=== PATIENT | male | born 1960 | race African-American/Black ===

== ENCOUNTER 2019-05-11 16:10 | Inpatient (IN) ==
[2019-05-11] MEDS: DEXTROSE 5% NACL 0.45% 1,000 ML IV SCH (18:48)
[2019-05-11] MEDS ORDERED: ONDANSETRON 4 MG/2 ML VIAL IV PRN (19:53)
[2019-05-11] MEDS ORDERED: MORPHINE 4 MG/1 ML VIAL IV PRN (19:53)
[2019-05-11] MEDS ORDERED: ACETAMINOPHEN 325 MG TABLET PO PRN (19:53)
[2019-05-11] MEDS: FAMOTIDINE 20 MG/2 ML VIAL IV SCH (20:23)
[2019-05-11] MEDS: ENOXAPARIN 40 MG/0.4 ML SYRINGE SUBCUT SCH (20:43)
[2019-05-11 21:18] LABS: Basophils % 0.3 % (0.0-0.8); Eosinophils # 0.1 10*3/uL (0.0-0.87); Eosinophils % 0.9 % (0.00-10.9); Hematocrit 41.8 VOL% (42.0-52.0); Hemoglobin 14.1 GM/DL (14.0-18.0); Immature Granulocytes Absolute 0.11 #; Lymphocytes # 2.4 10*3/uL (1.4-4.0); Mean Corpuscular HGB Conc 33.7 GM/DL (32-36); Mean Corpuscular Volume 99.1 FL (87-102); Mean Platelet Volume 10.1 FL (9.6-12.0); Monocytes % 9.5 % (1.7-12.7); Neutrophils % 67.3 % (38.7-73.9); Platelet Count 234 T/CUMM (130-400); Red Blood Count 4.22 MC/CUMM (3.8-5.5); Red Cell Distribution Width 14.4 % (9.3-17.3); White Blood Count 11.5 T/CUMM (4-12)
[2019-05-11] MEDS ORDERED: LORazepam 2 MG/1 ML VIAL IV PRN ×2 (22:13)
[2019-05-11] MEDS: HYDROmorphone 2 MG/1 ML VIAL IV PRN (22:30)
[2019-05-11] MEDS: niCARdipine INJ 25 MG in SODIUM CHLORIDE 0.9% 240 ML IV PRN (22:30)
[2019-05-11 22:38] LABS: Albumin 3.4 G/DL (3.4-5.0); Bilirubin,Total 0.7 MG/DL (0.2-1.0); Calcium 8.9 MG/DL (8.5-10.1); Osmolality,Calculated 271.8 MOS/KG (273-304); Total Protein 7.1 G/DL (6.4-8.3)
[2019-05-12] MEDS: niCARdipine INJ 25 MG in SODIUM CHLORIDE 0.9% 240 ML IV PRN ×5 (01:44→22:14)
[2019-05-12] MEDS: DEXTROSE 5% NACL 0.45% 1,000 ML IV SCH ×4 (02:52→18:00)
[2019-05-12] MEDS: HYDROmorphone 2 MG/1 ML VIAL IV PRN ×4 (04:55→20:09)
[2019-05-12 05:36] LABS: Risk Ratio 5.88; Thyroid Stimulating Hormone 1.1 uIU/ml (0.358-3.74)
[2019-05-12] MEDS ORDERED: METOPROLOL TARTRATE 5 MG/5 ML VIAL IV ONE ×2 (07:49→07:50)
[2019-05-12] MEDS ORDERED: ASPIRIN CHEW 81 MG TABLET PO ONE (07:49)
[2019-05-12] MEDS ORDERED: ENOXAPARIN 100 MG/ML SYRINGE SUBCUT ONE (07:50)
[2019-05-12] MEDS ORDERED: MAGNESIUM SULF RIDER 4 GM in PREMIX 1 EACH IV ONE (09:00)
[2019-05-12] MEDS ORDERED: METOPROLOL TARTRATE 25 MG TABLET PO SCH (09:00)
[2019-05-12] MEDS ORDERED: POTASSIUM CHLORIDE INJ 60 MEQ in SODIUM CHLORIDE 0.9% 500 ML IV ONE (09:30)
[2019-05-12] MEDS: FAMOTIDINE 20 MG/2 ML VIAL IV SCH ×2 (09:31→20:08)
[2019-05-12] MEDS ORDERED: amLODIPine 10 MG TABLET PO ONE (10:26)
[2019-05-12] MEDS ORDERED: NITROGLYCERIN SL 0.4 MG TABLET SL PRN (10:43)
[2019-05-12 11:13] LABS: Basophils # 0.1 10*3/uL (0.0-0.2); Basophils % 0.5 % (0.0-0.8); Eosinophils # 0.1 10*3/uL (0.0-0.87); Eosinophils % 0.7 % (0.00-10.9); Hematocrit 43.4 VOL% (42.0-52.0); Hemoglobin 14.9 GM/DL (14.0-18.0); Immature Granulocytes % 1.1 %; Immature Granulocytes Absolute 0.12 #; Lymphocytes # 2.4 10*3/uL (1.4-4.0); Lymphocytes % 22.1 % (21.2-54.2); Mean Corpuscular HGB Conc 34.3 GM/DL (32-36); Mean Corpuscular Volume 97.5 FL (87-102); Mean Platelet Volume 10.9 FL (9.6-12.0); Monocytes % 10.1 % (1.7-12.7); Neutrophils % 65.5 % (38.7-73.9); Platelet Count 255 T/CUMM (130-400); Red Blood Count 4.45 MC/CUMM (3.8-5.5); Red Cell Distribution Width 13.8 % (9.3-17.3); White Blood Count 10.8 T/CUMM (4-12)
[2019-05-12 11:29] LABS: Blood Urea Nitrogen 6 MG/DL (7-18); Calcium 8.7 MG/DL (8.5-10.1); Glucose 120 MG/DL (74-106); Osmolality,Calculated 268.1 MOS/KG (273-304)
[2019-05-12 11:31] LABS: Troponin I 0.322 NG/ML (0.00-0.045)
[2019-05-12 11:46] LABS: Troponin I 0.308 NG/ML (0.00-0.045)
[2019-05-12 12:07] VITALS: BP 165/85
[2019-05-12 14:08] LABS: Troponin I 0.316 NG/ML (0.00-0.045)
[2019-05-12 16:39] LABS: Troponin I 0.309 NG/ML (0.00-0.045)
[2019-05-12] MEDS ORDERED: OLMESARTAN 20 MG TABLET PO SCH (20:00)
[2019-05-12] MEDS: ENOXAPARIN 40 MG/0.4 ML SYRINGE SUBCUT SCH (20:08)
[2019-05-12] MEDS ORDERED: CARVEDILOL 3.125 MG TABLET PO SCH (21:00)
[2019-05-12] MEDS ORDERED: CARVEDILOL 12.5 MG TABLET PO SCH (21:00)
[2019-05-13] MEDS: DEXTROSE 5% NACL 0.45% 1,000 ML IV SCH ×2 (01:47→02:23)
[2019-05-13] MEDS: HYDROmorphone 2 MG/1 ML VIAL IV PRN (04:31)
[2019-05-13] MEDS ORDERED: ASPIRIN CHEW 81 MG TABLET PO SCH (09:00)
[2019-05-15 10:06] LABS: Metanephrine, Free 0.31 nmol/L (<0.50); Normetanephrine, Free 0.69 nmol/L (<0.90)
[2019-05-16 09:02] LABS: Dopamine, Plasma 89 pg/mL; Epinephrine, Plasma 230 pg/mL; Norepinephrine, Plasma 870 pg/mL
[2019-05-16 12:41] LABS: Renin Activity 1.9 ng/mL/h
== END 2019-05-13 06:25 | disposition left against medical advice (07) | DRG 304 ==
LOC: SUATTDRO 18:47 → N.CC 18:47 → N.ICU 05-12 17:32
PROVIDERS: ADMIT Internal Medicine; ATTEND Internal Medicine

== ENCOUNTER 2021-05-26 03:20 | Inpatient (IN) ==
[2021-05-26 09:17] LABS: Basophils % 0.4 % (0.0-0.8); Eosinophils % 0.1 % (0.00-10.9); Hematocrit 37.9 VOL% (42.0-52.0); Immature Granulocytes % 0.4 %; Immature Granulocytes Absolute 0.04 #; Lymphocytes # 1.8 10*3/uL (1.4-4.0); Lymphocytes % 18.4 % (21.2-54.2); Mean Corpuscular HGB Conc 34.3 GM/DL (32-36); Mean Corpuscular Volume 98.2 FL (87-102); Monocytes % 6.9 % (1.7-12.7); Neutrophils % 73.8 % (38.7-73.9); Platelet Count 200 T/CUMM (130-400); Red Blood Count 3.86 MC/CUMM (3.8-5.5); Red Cell Distribution Width 14.2 % (9.3-17.3)
[2021-05-26 09:34] LABS: Albumin 3.5 G/DL (3.4-5.0); Bilirubin,Total 0.6 MG/DL (0.20-1.00); Calcium 8.8 MG/DL (8.5-10.1); Osmolality,Calculated 278.4 MOS/KG (273-304); Total Protein 7.5 G/DL (6.4-8.2)
[2021-05-26 09:35] LABS: CKMB % 6.2 %
[2021-05-26 09:40] LABS: Thyroid Stimulating Hormone 0.864 uIU/ml (0.358-3.74)
[2021-05-26 09:40] LABS: High Sensitive Troponin I* 5435.8 ng/L (0-78)
[2021-05-26] MEDS ORDERED: ENOXAPARIN 40 MG/0.4 ML SYRINGE SUBCUT SCH (10:00)
[2021-05-26] MEDS ORDERED: ASPIRIN 325 MG TABLET PO SCH (10:00)
[2021-05-26] MEDS ORDERED: ENOXAPARIN 100 MG/ML SYRINGE SUBCUT ONE (10:10)
[2021-05-26] MEDS ORDERED: AMIODARONE INJ 150 MG in DEXTROSE 5% 100 ML IV ONE (10:17)
[2021-05-26] MEDS ORDERED: ATORVASTATIN 20 MG TABLET PO SCH (10:30)
[2021-05-26] MEDS ORDERED: AMIODARONE INJ 450 MG in DEXTROSE 5% 241 ML IV SCH (10:30)
[2021-05-26] MEDS: PANTOPRAZOLE 40 MG VIAL IV SCH (10:43)
[2021-05-26] MEDS: ASPIRIN EC 81 MG TABLET PO SCH (10:43)
[2021-05-26] MEDS: amLODIPine 10 MG TABLET PO SCH (10:43)
[2021-05-26 12:05] LABS: CKMB % 7.4 %
[2021-05-26 12:13] LABS: High Sensitive Troponin I* 11399.3 ng/L (0-78)
[2021-05-26] MEDS: CLORAZEPATE 7.5 MG TABLET PO SCH ×2 (12:21→20:58)
[2021-05-26] MEDS ORDERED: MAGNESIUM SULF RIDER 2 GM/50 ML PREMIX IV PRN (12:31)
[2021-05-26] MEDS ORDERED: POTASSIUM CHLORIDE RIDER 10 MEQ/100 ML PREMIX IV PRN (12:31)
[2021-05-26] MEDS ORDERED: DIAZEPAM 5 MG TABLET PO ONE (12:31)
[2021-05-26] MEDS ORDERED: diphenhydrAMINE CAP 50 MG CAPSULE PO ONE (12:31)
[2021-05-26] MEDS ORDERED: diphenhydrAMINE CAP 50 MG CAPSULE ONE (12:39)
[2021-05-26] MEDS ORDERED: DIAZEPAM 5 MG TABLET ONE (12:39)
[2021-05-26] MEDS ORDERED: NITROGLYCERIN DRIP 50 MG/250 ML BOTTLE IV ONE (13:59)
[2021-05-26] MEDS ORDERED: LIDOCAINE 1% 20 ML VIAL ONE (13:59)
[2021-05-26] MEDS ORDERED: VERAPAMIL 5 MG/2 ML VIAL ONE (13:59)
[2021-05-26] MEDS ORDERED: HEPARIN/NACL 0.9% 2 UNITS/ML 1,000 UNIT/500 ML BAG IV ONE (13:59)
[2021-05-26] MEDS ORDERED: MIDAZOLAM 2 MG/2 ML VIAL ONE (14:27)
[2021-05-26] MEDS ORDERED: HYDROmorphone 2 MG/1 ML VIAL ONE (14:27)
[2021-05-26] MEDS ORDERED: TIROFIBAN 5,000 MCG/100 ML PREMIX IV ONE (14:45)
[2021-05-26 14:47] LABS: CKMB % 7.9 %
[2021-05-26] MEDS ORDERED: PRASUGREL 10 MG TABLET ONE (14:49)
[2021-05-26 14:59] LABS: High Sensitive Troponin I* 22426.8 ng/L (0-78)
[2021-05-26] MEDS ORDERED: chlordiazePOXIDE 10 MG CAPSULE PO SCH (15:00)
[2021-05-26] MEDS: AMIODARONE INJ 450 MG in DEXTROSE 5% 241 ML IV SCH (19:08)
[2021-05-26] MEDS: THIAMINE 200 MG/2 ML VIAL IV SCH (20:59)
[2021-05-27 05:16] LABS: Basophils # 0.1 10*3/uL (0.0-0.2); Basophils % 0.6 % (0.0-0.8); Eosinophils # 0.2 10*3/uL (0.0-0.87); Eosinophils % 1.7 % (0.00-10.9); Hematocrit 39.9 VOL% (42.0-52.0); Hemoglobin 13.4 GM/DL (14.0-18.0); Immature Granulocytes % 0.1 %; Immature Granulocytes Absolute 0.01 #; Lymphocytes # 2.8 10*3/uL (1.4-4.0); Lymphocytes % 31.6 % (21.2-54.2); Mean Corpuscular HGB Conc 33.6 GM/DL (32-36); Mean Corpuscular Volume 99.5 FL (87-102); Mean Platelet Volume 10.7 FL (9.6-12.0); Monocytes % 10.8 % (1.7-12.7); Neutrophils % 55.2 % (38.7-73.9); Platelet Count 208 T/CUMM (130-400); Red Blood Count 4.01 MC/CUMM (3.8-5.5); Red Cell Distribution Width 14.1 % (9.3-17.3); White Blood Count 8.7 T/CUMM (4-12)
[2021-05-27 05:36] LABS: Calcium 8.4 MG/DL (8.5-10.1); Osmolality,Calculated 281.3 MOS/KG (273-304); Potassium 3.4 MMOL/L (3.5-5.1); Risk Ratio 4.96
[2021-05-27] MEDS ORDERED: POTASSIUM CHLORIDE 20 MEQ TABLET PO ONE (08:46)
[2021-05-27] MEDS ORDERED: NEBIVOLOL 10 MG TABLET PO SCH (09:00)
[2021-05-27] MEDS: FOLIC ACID 1 MG TABLET PO SCH (09:02)
[2021-05-27] MEDS: PRASUGREL 10 MG TABLET PO SCH (09:02)
[2021-05-27] MEDS: ATORVASTATIN 80 MG TABLET PO SCH (09:02)
[2021-05-27] MEDS: CLORAZEPATE 7.5 MG TABLET PO SCH ×2 (09:02→20:25)
[2021-05-27] MEDS: amLODIPine 10 MG TABLET PO SCH (09:02)
[2021-05-27] MEDS: ASPIRIN EC 81 MG TABLET PO SCH (09:03)
[2021-05-27] MEDS: PANTOPRAZOLE 40 MG VIAL IV SCH (09:04)
[2021-05-27] MEDS: AMIODARONE 200 MG TABLET PO SCH ×2 (09:37→20:25)
[2021-05-27] MEDS: THIAMINE 200 MG/2 ML VIAL IV SCH ×2 (09:38→20:25)
[2021-05-27] MEDS: AMIODARONE INJ 450 MG in DEXTROSE 5% 241 ML IV SCH (11:36)
[2021-05-27] MEDS: carvediloL 6.25 MG TABLET PO SCH (20:25)
[2021-05-28 04:22] LABS: Basophils # 0.1 10*3/uL (0.0-0.2); Basophils % 0.8 % (0.0-0.8); Eosinophils # 0.2 10*3/uL (0.0-0.87); Eosinophils % 2.5 % (0.00-10.9); Hematocrit 43.9 VOL% (42.0-52.0); Hemoglobin 14.7 GM/DL (14.0-18.0); Immature Granulocytes % 0.3 %; Immature Granulocytes Absolute 0.02 #; Lymphocytes # 2.5 10*3/uL (1.4-4.0); Lymphocytes % 33.3 % (21.2-54.2); Mean Corpuscular HGB Conc 33.5 GM/DL (32-36); Mean Corpuscular Volume 98.2 FL (87-102); Mean Platelet Volume 10.6 FL (9.6-12.0); Monocytes % 11.9 % (1.7-12.7); Neutrophils % 51.2 % (38.7-73.9); Platelet Count 207 T/CUMM (130-400); Red Blood Count 4.47 MC/CUMM (3.8-5.5); Red Cell Distribution Width 13.9 % (9.3-17.3); White Blood Count 7.6 T/CUMM (4-12)
[2021-05-28 04:42] LABS: Calcium 9.1 MG/DL (8.5-10.1); Osmolality,Calculated 273.7 MOS/KG (273-304); Potassium 3.5 MMOL/L (3.5-5.1)
[2021-05-28 08:25] VITALS: BP 170/98
[2021-05-28 09:05] LABS: Barbiturates Screen,Urine Negative (Negative); Benzodiazepines Screen,Urine Positive (Negative); Cannabinoid Screen,Urine Positive (Negative); Opiate Screen,Urine Positive (Negative); Phencyclidine Screen,Urine Negative (Negative)
[2021-05-28] MEDS ORDERED: LOSARTAN 25 MG TABLET PO SCH (09:30)
[2021-05-28] MEDS: PANTOPRAZOLE 40 MG VIAL IV SCH (09:56)
[2021-05-28] MEDS: carvediloL 6.25 MG TABLET PO SCH (09:57)
[2021-05-28] MEDS: THIAMINE 200 MG/2 ML VIAL IV SCH (09:57)
[2021-05-28] MEDS: CLORAZEPATE 7.5 MG TABLET PO SCH (09:57)
[2021-05-28] MEDS: ATORVASTATIN 80 MG TABLET PO SCH (09:57)
[2021-05-28] MEDS: FOLIC ACID 1 MG TABLET PO SCH (09:57)
[2021-05-28] MEDS: PRASUGREL 10 MG TABLET PO SCH (09:57)
[2021-05-28] MEDS: ASPIRIN EC 81 MG TABLET PO SCH (09:57)
[2021-05-28] MEDS: amLODIPine 10 MG TABLET PO SCH (09:57)
[2021-05-28] MEDS: AMIODARONE 200 MG TABLET PO SCH (09:58)
== END 2021-05-28 11:56 | disposition home or self-care (01) | DRG 247 ==
LOC: N.TELEN → OBSVTOIN 03:24 → SUATTDRO 03:24
PROVIDERS: ADMIT Internal Medicine; ATTEND Hospitalist